=== PATIENT | male | born 1980 | race Caucasian/White ===

== ENCOUNTER 2020-05-14 12:31 | Emergency (ER) | payer OTHER ==
[~2020-05-14] VITALS: Ht 177.8 cm; Wt 131.8 kg
[2020-05-14 13:29] LABS: BILIRUBIN,URINE NEGATIVE (NEG); CLARITY,URINE CLEAR; COLOR,URINE YELLOW; NITRITE,URINE NEGATIVE (NEG); PH,URINE 5.5 (<5.0-8.0); PROTEIN,URINE 30 mg/dL (NEG-TRACE); UROBILINOGEN,URINE 0.2 mg/dL (0.2 mg/dL)
[2020-05-14 13:45] LABS: BACTERIA,URINE 0 /HPF (0-FEW); RBC,URINE 0 /HPF (0-2)
[2020-05-14] MEDS ORDERED: FAMOTIDINE 20 MG/2 ML VIAL IVP ONE (13:45)
[2020-05-14] MEDS ORDERED: IV NORMAL SALINE 1000ML BAG 1,000 ML IV ONE (13:45)
[2020-05-14] MEDS ORDERED: ONDANSETRON PF 4 MG/2 ML VIAL. IVP ONE (13:45)
[2020-05-14] MEDS ORDERED: fentaNYL PF VIAL 100 MCG/2 ML VIAL IVP ONE (13:45)
--- NOTE | 2020-05-14 13:45 | PHYS DOC ---
General Adult EDM: Chief Complaint: ABDOMINAL PAIN HPI: HPI: Patient is a 39 year old male with history of diabetes type 2, hypertension, coming [facility] presenting today complaining of a sharp 8 out of 10 right upper quadrant abdominal pain for 3 weeks. Patient states the pain is worse after eating greasy foods. Denies anything specifically alleviating the pain. Reports nausea, vomiting and diarrhea. Review of Systems: Review of Systems: Constitutional: Denies fever or chills. [] Eyes: Denies change in visual acuity. [] HENT: Denies nasal congestion or sore throat. [] Respiratory: Denies cough or shortness of breath. [] Cardiovascular: Denies chest pain or edema. [] GI: Reports right upper quadrant abdominal pain, with nausea vomiting and osito rrhea, denies any bloody stools or hematemesis : Denies dysuria. [] Musculoskeletal: Denies back pain or joint pain. [] Integument: Denies rash. [] Neurologic: Denies headache, focal weakness or sensory changes. [] Psychiatric: Denies depression or anxiety. [] Heart Score: Risk Factors: Risk Factors: DM, Current or recent (<one month) smoker, HTN, HLP, family history of CAD, obesity. Risk Scores: Score 0 - 3: 2.5% MACE over next 6 weeks - Discharge Home Score 4 - 6: 20.3% MACE over next 6 weeks - Admit for Clinical Observation Score 7 - 10: 72.7% MACE over next 6 weeks - Early Invasive Strategies Physical Exam: PE: Constitutional: Well developed, well nourished, no acute distress, non-toxic appearance. [] HENT: Normocephalic, atraumatic, bilateral external ears normal, oropharynx moist, no oral exudates, nose normal. [] Eyes: PERRLA, EOMI, conjunctiva normal, no discharge. [] Neck: Normal range of motion, no tenderness, supple, no stridor. [] Cardiovascular:Heart rate regular rhythm, no murmur [] Lungs & Thorax: Bilateral breath sounds clear to auscultation [] Abdomen: Obese abdomen. Mild right upper quadrant tenderness with positive Lopes sign bowel sounds normal, soft, no right lower quadrant tenderness no masses, no pulsatile masses. [] Skin: Warm, dry, no erythema, no rash. [] Back: No tenderness, no CVA tenderness. [] Extremities: No tenderness, no cyanosis, no clubbing, ROM intact, no edema. [] Neurologic: Alert and oriented X 3, normal motor function, normal sensory function, no focal deficits noted. [] Psychologic: Affect normal, judgement normal, mood normal. [] EKG: EKG: [] Radiology/Procedures: Radiology/Procedures: []PROCEDURE: ABDOMEN LTD Right upper quadrant abdominal ultrasound History: Reason: RUQ PAIN Comparison: None. Technique: Transabdominal ultrasound images are obtained. Findings: Liver is increased in echogenicity. There is decreased through-transmission. Right hepatic lobe measures 20.4 cm. Portal flow is hepatopedal. There is no gallbladder wall thickening. There is no cholelithiasis. The right kidney measures 10.4 cm in length. There is no hydronephrosis. The IVC and common bile duct are not visualized due to overlying bowel gas. The majority of the pancreas is obscured due to overlying bowel gas. IMPRESSION: 1. Hepatomegaly. Fatty infiltration of the liver. 2. Due to overlying bowel gas the IVC and common bile duct and a majority of the pancreas are obscured. Electronically signed by: Jacob Valero MD (05/14/2020 3:14 PM) [id number] DICTATED and SIGNED BY: JACOB VALERO MD DATE: 05/14/20 [id number] PROCEDURE: CT ABD PELV W/ IV CONTRST ONLY Exam: CT of abdomen and pelvis with contrast INDICATION: Right upper quadrant pain TECHNIQUE: Sequential axial images through the abdomen and pelvis obtained following the administration of 75 mL of Omni 300 IV contrast. Sagittal and coronal reformatted images were reconstructed from the axial data and reviewed. Comparisons: Ultrasound same day FINDINGS: Heart size is normal. No effusion. Visualized lung bases are clear. No pleural effusion. Diffuse hepatic steatosis. Spleen, pancreas, gallbladder and adrenals are unremarkable. No perinephric inflammation or hydronephrosis. No renal or ureteral calculi are identified. Bladder is partially distended and appears thin-walled. Prostate is not enlarged. Few scattered diverticula noted at the sigmoid colon without evidence of acute diverticulitis. The remainder of the large and small bowel are unremarkable. Appendix is normal. No free intra-abdominal air fluid. No obstruction. Abdominal aorta has a normal course and caliber. Abdominal vasculature is patent. No enlarged intra-abdominal lymph nodes are identified. No suspicious osseous lesions or acute fractures. IMPRESSION: 1. No acute process identified within the abdomen or pelvis. 2. Diverticulosis without evidence of acute diverticulitis. 3. Diffuse hepatic steatosis. Exposure: One or more of the following in the visualized dose reduction techniques were utilized for this examination: 1. Automated exposure control 2. Adjustment of the MA and/or KV according to patient size 3. Use of iterative of reconstructive technique Electronically signed by: Mike Adams MD (05/14/2020 3:51 PM) [facility] DICTATED and SIGNED BY: MIKE ADAMS MD DATE: 05/14/20 [id number] 0 Course & Med Decision Making: Course & Med Decision Making Pertinent Labs and Imaging studies reviewed. (See chart for details) This is a 39-year-old inmate coming from [facility] with complaints of right upper quadrant abdominal pain with nausea vomiting and diarrhea for 3 weeks. Symptoms worse after eating. CBC with no acute findings, CMP with AST of 78, ALT 147 ALK of 147. Right upper quadrant limited ultrasound was not able to visualize the gallbladder wall due to gas. CT of the abdomen and pelvic was negative for any acute findings. Urine positive for UTI, discharged on Cipro. Follow-up with PCP in 1 week Ismael Disclaimer: Ismael Disclaimer: This electronic medical record was generated, in whole or in part, using a voice recognition dictation system. Departure Departure Impression: Primary Impression: Right upper quadrant pain Additional Impressions: Urinary tract infection Qualified Codes: N39.0 - Urinary tract infection, site not specified Transaminitis Disposition: MD HOME SELF CARE/HOMELESS Condition: STABLE Referrals: NO PCP (PCP) Follow-up with your primary care doctor in 1 week Patient Instructions: Abdominal Pain, Urinary Tract Infection Additional Instructions: You were evaluated in the emergency room, your CAT scan of the abdomen and pelvic was negative for any acute findings. Your urine was positive for UTI, complete your antibiotics. Your liver enzymes are slightly elevated AST 78, ALT 147, ALK 147. This needs to be followed up with your primary care doctor for repeat labs. Scripts Ciprofloxacin Hcl (CIPRO) 500 Mg Tablet 1 TAB PO BID for 7 Days, #14 TAB 0 Refills Prov: ELIZABETH HINTON APRN 05/14/20 ELIZABETH HINTON APRN May 14, 2020 13:45
[2020-05-14 14:01] LABS: BASO # 0.1 x10^3/uL (0.0-0.2); BASO % 1 % (0-3); EOS # 0.1 x10^3/uL (0.0-0.7); EOS % 1 % (0-3); HEMOGLOBIN 15.4 g/dL (13.0-17.5); LYMPH % 25 % (24-48); MEAN CORPUSCULAR HEMOGLOBIN 29 pg (25-35); MEAN CORPUSCULAR HGB CONC 34 g/dL (31-37); MEAN CORPUSCULAR VOLUME 85 fL (79-100); MONO # 0.6 x10^3/uL (0.0-1.1); MONO % 7 % (0-9); NEUT # 5.3 x10^3/uL (1.8-7.7); NEUT % 66 % (31-73); PLATELET COUNT 262 x10^3/uL (140-400); RED CELL DISTRIBUTION WIDTH 14.1 % (11.5-14.5)
[2020-05-14 14:51] LABS: CALCIUM 9.6 mg/dL (8.5-10.1); CREATININE 0.9 mg/dL (0.7-1.3); GFR 93.5
[2020-05-14 14:54] LABS: ALBUMIN 3.8 g/dL (3.4-5.0); ALBUMIN/GLOBULIN RATIO 0.9 (1.0-1.7); TOTAL BILIRUBIN 0.4 mg/dL (0.2-1.0); TOTAL PROTEIN 8.1 g/dL (6.4-8.2)
--- NOTE | 2020-05-14 15:17 | RAD ---
Right upper quadrant abdominal ultrasound History: Reason: RUQ PAIN Comparison: None. Technique: Transabdominal ultrasound images are obtained. Findings: Liver is increased in echogenicity. There is decreased through-transmission. Right hepatic lobe measu res 20.4 cm. Portal flow is hepatopedal. There is no gallbladder wall thickening. There is no cholelithiasis. The right kidney measures 10.4 cm in length. There is no hydronephrosis. The IVC and common bile duct are not visualized due to overlying bowel gas. The majority of the pancr eas is obscured due to overlying bowel gas. IMPRESSION: 1. Hepatomegaly. Fatty infiltration of the liver. 2. Due to overlying bowel gas the IVC and common bile duct and a majority of the pancreas are obscur ed. Electronically signed by: Jacob Valero MD (05/14/2020 3:14 PM) [id number]
[2020-05-14] MEDS ORDERED: IOHEXOL 300 MG/ML 100ML VIAL. IV ONE (15:30)
[2020-05-14 15:42] VITALS: BP 149/80
[2020-05-14] MEDS ORDERED: CONTRAST GIVEN. MC PRN (15:45)
--- NOTE | 2020-05-14 15:54 | RAD ---
Exam: CT of abdomen and pelvis with contrast INDICATION: Right upper quadrant pain TECHNIQUE: Sequential axial images through the abdomen and pelvis obtained following the administrati on of 75 mL of Omni 300 IV contrast. Sagittal and coronal reformatted images were reconstructed from the axial data and reviewed. Comparisons: Ultrasound same day FINDINGS: Heart size is normal. No effusion. Visualized lung bases are clear. No pleural effusion. Diffuse hepatic steatosis. Spleen, pancreas, gallbladder and adrenals are unremarkable. No perinephric inflammation or hydronephrosis. No renal or ureteral calculi are identified. Bladder is partially distended and appears thin-walled. Prostate is not enlarged. Few scattered diverticula noted at the sigmoid colon without evidence of acute diverticulitis. The re mainder of the large and small bowel are unremarkable. Appendix is normal. No free intra-abdominal ai r fluid. No obstruction. Abdominal aorta has a normal course and caliber. Abdominal vasculature is patent. No enlarged intra-abdominal lymph nodes are identified. No suspicious osseous lesions or acute fractures. IMPRESSION: 1. No acute process identified within the abdomen or pelvis. 2. Diverticulosis without evidence of acute diverticulitis. 3. Diffuse hepatic steatosis. Exposure: One or more of the following in the visualized dose reduction techniques were utilized for this examination: 1. Automated exposure control 2. Adjustment of the MA and/or KV according to patient size 3. Use of iterative of reconstructive technique Electronically signed by: Mike Field MD (05/14/2020 3:51 PM) [id number]
[2020-05-14] MEDS ORDERED: CIPR500T94 PO (16:20)
[2020-05-14 16:41] LABS: BARBITURATES NEG (NEG); BENZODIAZEPINES NEG (NEG); CANNABINOIDS NEG (NEG); COCAINE NEG (NEG); METHADONE NEG (NEG); OPIATES NEG (NEG); PHENCYCLIDINE NEG (NEG)
[2020-05-14 16:42] LABS: AMPHETAMINE/METHAMPHETAMINE NEG (NEG)
== END 2020-05-14 16:38 | disposition home or self-care (01) ==
LOC: EEVIPCON 12:31 → ER 12:31
DX: N39.0 Urinary tract infection, site not specified (principal); R10.11 Right upper quadrant pain; R74.01 Elevation of levels of liver transaminase levels; R19.7 Diarrhea, unspecified; E11.9 Type 2 diabetes mellitus without complications
CPT/HCPCS: 36415; 74177; 76705; 80053; 80307; 81001; 83690; 85025; 87086; 87491; 87591; 96361; 96374; 96375; 99285; G0480; J2405; J3010; J3490; J7030; Q9967